=== PATIENT | female | born 1995 | race Caucasian/White ===

== ENCOUNTER 2020-02-13 13:03 | Emergency (ER) | payer OTHER ==
[~2020-02-13] VITALS: Ht 177.8 cm; Wt 88.0 kg
[2020-02-13 13:18] LABS: URINE BILIRUBIN NEGATIVE (Negative); URINE BLOOD NEGATIVE (Negative); URINE CLARITY SL CLOUDY; URINE COLOR YELLOW; URINE GLUCOSE-RANDOM NEGATIVE (Negative); URINE KETONES TRACE (Negative); URINE LEUKOCYTES-REFLEX TRACE (Negative); URINE NITRITE-REFLEX NEGATIVE (Negative); URINE PROTEIN TRACE (Negative); URINE SPECIFIC GRAVITY >= 1.030 (1.005-1.030); URINE UROBILINOGEN 0.2 E.U./dl (0.2-1.0)
[2020-02-13 13:25] LABS: ABSOLUTE BASOPHILS 0.1 thou/uL (0.0-0.2); ABSOLUTE LYMPHOCYTES 1.2 thou/uL (0.8-5.3); ABSOLUTE MONOCYTES 0.6 thou/uL (0.0-1.2); ABSOLUTE NEUTROPHILS 9.1 thou/uL (1.6-8.1); BASOPHILS 0.5 %; EOSINOPHILS 0.1 %; HEMATOCRIT 42.2 % (37.0-47.0); HEMOGLOBIN 14.7 gm/dL (12.0-15.0); LYMPHOCYTES 10.6 %; MCH 30.8 pg (26.0-34.0); MCHC 34.8 g/dL (28.0-37.0); MCV 88.6 fL (80.0-100.0); MONOCYTES 5.5 %; NUCLEATED RBCS 0 /100WBC; PLATELET COUNT* 218 thou/uL (150-400); POLYS 83.3 %; RBC 4.77 mil/uL (4.20-5.00); RDW-CV 12.7 % (10.5-14.5); WBC 10.9 thou/uL (4.0-11.0)
[2020-02-13 13:25] LABS: BACTERIA-REFLEX >30 Many /HPF (None Seen); CASTS None Seen /LPF (None Seen); CRYSTALS None Seen /LPF (None Seen); MUCUS >6 Heavy strn/LPF (None Seen); SQUAMOUS >10 Many /LPF (0-3); URINE RBC 0-2 Rare /HPF (0-2)
[2020-02-13 13:33] LABS: CALCIUM 8.6 mg/dL (8.5-10.1)
[2020-02-13 13:37] LABS: ALBUMIN 4.3 g/dL (3.4-5.0); TOTAL BILIRUBIN 0.4 mg/dL (<0.1-1.0); TOTAL PROTEIN 8.6 g/dL (6.4-8.2)
[2020-02-13] MEDS ORDERED: ONDANSETRON HCL4 M2 PO (15:10)
[2020-02-13] MEDS ORDERED: BENTYL 20 MG TA20 M1 PO (15:10)
[2020-02-13 15:55] VITALS: BP 93/51
== END 2020-02-13 15:57 | disposition home or self-care (01) ==
LOC: M.ERS 13:03
PROVIDERS: Nurse Practitioner Family
DX: K52.9 Noninfective gastroenteritis and colitis, unspecified (principal)